=== PATIENT | female | born 1980 | race African-American/Black ===

== ENCOUNTER 2018-05-28 07:52 | Emergency (ER) | payer SELFPAY ==
[~2018-05-28] VITALS: Ht 160 cm; Wt 88.0 kg
[2018-05-28] MEDS ORDERED: IBUPROFEN 600MG TABLET PO ONE (08:30)
[2018-05-28 10:46] VITALS: BP 132/61
== END 2018-05-28 10:48 | disposition home or self-care (01) ==
LOC: ER 10:13
DX: S81.801A Unspecified open wound, right lower leg, initial encounter (principal); R60.0 Localized edema; W25.XXXA Contact with sharp glass, initial encounter; Y93.89 Activity, other specified; Y92.89 Other specified places as the place of occurrence of the external cause; Z72.0 Tobacco use
CPT/HCPCS: 73590; 73610; 73630; 81025; 93971; 99284

== ENCOUNTER → 2018-05-30 | Emergency (ER) | payer SELFPAY ==
[~2018-05-30] VITALS: Ht 160 cm; Wt 113.0 kg
[2018-05-30 18:42] VITALS: BP 169/99
== END | disposition home or self-care (01) ==
LOC: ER 20:34
DX: Z48.00 Encounter for change or removal of nonsurgical wound dressing (principal); I87.2 Venous insufficiency (chronic) (peripheral); R03.0 Elevated blood-pressure reading, without diagnosis of hypertension; I82.509 Chronic embolism and thrombosis of unspecified deep veins of unspecified lower extremity
CPT/HCPCS: 99282

== ENCOUNTER 2019-09-29 21:23 | Emergency (ER) | payer SELFPAY ==
[~2019-09-29] VITALS: Ht 165.1 cm; Wt 69.0 kg
[2019-09-29] MEDS ORDERED: KETOROLAC 60MG/2ML VIAL IM ONE (22:45)
[2019-09-29 23:17] VITALS: BP 131/80
== END 2019-09-29 23:17 | disposition home or self-care (01) ==
LOC: ER 21:23
DX: J06.9 Acute upper respiratory infection, unspecified (principal)
CPT/HCPCS: 96372; 99283; J1885

== ENCOUNTER 2021-02-02 14:51 | Emergency (ER) | payer MEDICAID ==
[~2021-02-02] VITALS: Ht 162.6 cm; Wt 82.0 kg
[2021-02-02] MEDS ORDERED: KETOROLAC 15MG/ML VIAL IM ONE (15:30)
[2021-02-02] MEDS ORDERED: IBUP-2029 MT (16:09)
[2021-02-02 16:28] VITALS: BP 128/70
== END 2021-02-02 14:55 | disposition left against medical advice (07) ==
LOC: ER 14:51
DX: M25.512 Pain in left shoulder (principal); E11.9 Type 2 diabetes mellitus without complications; I10 Essential (primary) hypertension
CPT/HCPCS: 73030; 96372; 99283; J1885

== ENCOUNTER 2023-02-28 12:17 | Emergency (ER) | payer MEDICAID ==
[~2023-02-28] VITALS: Ht 167.6 cm; Wt 104.0 kg
[~2023-02-28 12:17] MED LIST: IBUP-2029 MT
[2023-02-28 12:46] LABS: BASOPHILS % 0.3 % (0.0-2.0); EOSINOPHILS % 1.5 % (0.0-5.0); HEMATOCRIT. 38.6 % (36.0-48.0); HEMOGLOBIN. 12.1 g/dL (12.0-16.0); LYMPHOCYTES % 24.1 % (20.0-50.0); MEAN CORPUSCULAR HEMOGLOBIN 22.5 pg (28.0-32.0); MEAN CORPUSCULAR VOLUME 72.1 fL (81.0-99.0); MEAN PLATELET VOLUME 8.6 fl (7.4-10.4); MONOCYTES % 8.2 % (2.0-8.0); NEUTROPHILS % 65.9 % (40.0-76.0); PLATELET 271 x1000/uL (130-400); RED BLOOD CELL COUNT 5.35 mill/uL (4.2-5.4); RED CELL DISTRIBUTION WIDTH 20.7 % (11.6-14.6)
[2023-02-28 12:52] LABS: CHLORIDE 100 mEq/L (98-107)
[2023-02-28 13:13] LABS: HCG SCREEN NEGATIVE
[2023-02-28 14:49] LABS: CLARITY URINE CLOUDY (CLEAR); COLOR URINE RED (YELLOW); KETONES URINE NEGATIVE (NEGATIVE); LEUKOCYTE ESTERASE URINE TRACE (NEGATIVE); NITRITE URINE NEGATIVE (NEGATIVE); OCCULT BLOOD URINE 3+ (NEGATIVE); PROTEIN URINE 1+ (NEGATIVE); SPECIFIC GRAVITY URINE 1.035 (1.005-1.030)
[2023-02-28] MEDS ORDERED: FERR210T MT (15:07)
[2023-02-28 15:30] VITALS: BP 141/85
== END 2023-02-28 15:43 | disposition home or self-care (01) ==
LOC: ER 12:26
DX: N93.8 Other specified abnormal uterine and vaginal bleeding (principal); E11.9 Type 2 diabetes mellitus without complications; I10 Essential (primary) hypertension
CPT/HCPCS: 36415; 76830; 76856; 80053; 81003; 81025; 84703; 85025; 86850; 86900; 86901; 99284; Z7610

== ENCOUNTER 2024-04-02 09:55 | Emergency (ER) | payer MEDICAID ==
[~2024-04-02] VITALS: Ht 167.6 cm; Wt 82.0 kg
[~2024-04-02 09:55] MED LIST changes: +FERR210T MT
[2024-04-02 09:57] VITALS: O2SAT 100
[2024-04-02 10:44] LABS: BASOPHILS % 0.5 % (0.0-2.0); HEMATOCRIT. 39.7 % (36.0-48.0); HEMOGLOBIN. 13.1 g/dL (12.0-16.0); LYMPHOCYTES % 22.4 % (20.0-50.0); MEAN CORPUSCULAR HEMOGLOBIN 27.7 pg (28.0-32.0); MEAN CORPUSCULAR VOLUME 83.8 fL (81.0-99.0); MEAN PLATELET VOLUME 8.7 fl (7.4-10.4); MONOCYTES % 8.6 % (2.0-8.0); NEUTROPHILS % 67.5 % (40.0-76.0); PLATELET 209 x1000/uL (130-400); RED BLOOD CELL COUNT 4.73 mill/uL (4.2-5.4); RED CELL DISTRIBUTION WIDTH 15.2 % (11.6-14.6); WHITE BLOOD COUNT 10.8 x1000/uL (4.5-11.0)
[2024-04-02] MEDS: SODIUM CHLORIDE 0.9% 1,000 ML IV ONE ×2 (10:54→11:55)
[2024-04-02 11:01] LABS: CHLORIDE 101 mEq/L (98-107); SODIUM 135 mEq/L (136-145)
[2024-04-02 11:02] LABS: CARBON DIOXIDE 23 mEq/L (21-32)
[2024-04-02 11:07] LABS: CREATININE 0.8 mg/dL (0.6-1.0); GLUCOSE 358 mg/dL (70-105); UREA NITROGEN BLOOD 6 mg/dL (9-23)
[2024-04-02 11:24] LABS: TROPONIN I HIGH SENSITIVITY < 4 ng/L (3.0-34)
[2024-04-02 14:03] LABS: TROPONIN I HIGH SENSITIVITY < 4 ng/L (3.0-34)
[2024-04-02] MEDS ORDERED: METF-414 MT (14:55)
[2024-04-02] MEDS ORDERED: TOPUD MT (14:55)
[2024-04-02] MEDS ORDERED: PANT40SU MT (14:55)
[2024-04-02 15:21] VITALS: BP 132/54; PULSE 72; RESP 16; TEMP 98
== END 2024-04-02 15:24 | disposition home or self-care (01) ==
LOC: ER 10:39
DX: R07.89 Other chest pain (principal); I10 Essential (primary) hypertension; E11.9 Type 2 diabetes mellitus without complications; Z98.890 Other specified postprocedural states
CPT/HCPCS: 99285; 96360; 71045; 80048; 82010; 82962; 83880; 85025; 84484; 36415; 93005; J7030

== ENCOUNTER 2024-08-13 09:17 | Emergency (ER) | payer MEDICAID ==
[~2024-08-13] VITALS: Ht 160 cm; Wt 105.0 kg
[~2024-08-13 09:17] MED LIST changes: +METF-414 MT; +PANT40SU MT; +TOPUD MT
[2024-08-13 09:41] VITALS: O2SAT 99
[2024-08-13 10:16] LABS: BASOPHILS % 0.4 % (0.0-2.0); EOSINOPHILS % 0.7 % (0.0-5.0); HEMATOCRIT. 38.9 % (36.0-48.0); HEMOGLOBIN. 12.4 g/dL (12.0-16.0); LYMPHOCYTES % 26.5 % (20.0-50.0); MEAN CORPUSCULAR HEMOGLOBIN 26.5 pg (28.0-32.0); MEAN CORPUSCULAR HGB CONC 31.9 g/dL (31.0-37.0); MEAN CORPUSCULAR VOLUME 83.2 fL (81.0-99.0); MEAN PLATELET VOLUME 9.1 fl (7.4-10.4); MONOCYTES % 7.1 % (2.0-8.0); NEUTROPHILS % 65.3 % (40.0-76.0); PLATELET 231 x1000/uL (130-400); RED BLOOD CELL COUNT 4.68 mill/uL (4.2-5.4); RED CELL DISTRIBUTION WIDTH 14.1 % (11.6-14.6); WHITE BLOOD COUNT 8.9 x1000/uL (4.5-11.0)
[2024-08-13 10:29] LABS: CHLORIDE 104 mEq/L (98-107); POTASSIUM 3.8 mEq/L (3.5-5.1); SODIUM 136 mEq/L (136-145)
[2024-08-13 10:30] LABS: CALCIUM 8.9 mg/dL (8.7-10.4); CARBON DIOXIDE 28 mEq/L (21-32)
[2024-08-13] MEDS ORDERED: ONDANSETRON 4MG ODT PO ONE (10:30)
[2024-08-13 10:35] LABS: CREATININE 0.9 mg/dL (0.6-1.0); GLUCOSE 243 mg/dL (70-105)
[2024-08-13 10:36] LABS: UREA NITROGEN BLOOD 11 mg/dL (9-23)
[2024-08-13 10:37] LABS: ALANINE AMINOTRANSFERASE 8 IU/L (10-49); ASPARTATE AMINOTRANSFERASE 10 IU/L (<34); BILIRUBIN DIRECT 0.1 mg/dL (<=3.0)
[2024-08-13 10:38] LABS: BILIRUBIN TOTAL 0.4 mg/dL (0.1-1.0); PROTEIN TOTAL 7.3 g/dL (6.0-8.3)
[2024-08-13 10:43] LABS: TROPONIN I HIGH SENSITIVITY < 4 ng/L (3.0-34)
[2024-08-13 11:09] LABS: CLARITY URINE CLOUDY (CLEAR); COLOR URINE YELLOW (YELLOW); GLUCOSE URINE 3+ (NEGATIVE); KETONES URINE NEGATIVE (NEGATIVE); LEUKOCYTE ESTERASE URINE NEGATIVE (NEGATIVE); NITRITE URINE NEGATIVE (NEGATIVE); OCCULT BLOOD URINE NEGATIVE (NEGATIVE); PH URINE 5.5 (4.5-8.0); PROTEIN URINE NEGATIVE (NEGATIVE); SPECIFIC GRAVITY URINE 1.031 (1.005-1.030)
[2024-08-13 11:25] LABS: BACTERIA URINE 3+; RBC URINE 0-2 /hpf (0-2); SQUAMOUS EPITHELIAL CELL URINE 3+ /lpf (RARE/1+); WBC URINE 0-2 /hpf (0-2); YEAST URINE NONE SEEN
[2024-08-13] MEDS ORDERED: ONDA-239 PO (13:32)
[2024-08-13] MEDS: ONDANSETRON 4MG ODT PO NR (13:34)
[2024-08-13 13:36] VITALS: BP 129/78; PULSE 76; RESP 18; TEMP 37.05852; O2SAT 100
== END 2024-08-13 13:37 | disposition home or self-care (01) ==
LOC: ER 09:29
DX: K52.9 Noninfective gastroenteritis and colitis, unspecified (principal); E11.9 Type 2 diabetes mellitus without complications; I10 Essential (primary) hypertension; Z91.040 Latex allergy status; Z98.890 Other specified postprocedural states
CPT/HCPCS: 99284; 80076; 80048; 81003; 81025; 82010; 82962; 83690; 85025; 84484; 36415; 93005; Q0162

== ENCOUNTER 2025-03-24 06:33 | Emergency (ER) | payer MEDICAID ==
[~2025-03-24] VITALS: Ht 162.6 cm; Wt 103.0 kg
[~2025-03-24 06:33] MED LIST changes: +ONDA-239 PO
[2025-03-24 06:38] VITALS: O2SAT 98
[2025-03-24] MEDS: OXYCODONE HCL/ACETAMINOPHEN 5/325MG TABLET PO ONE (07:24)
[2025-03-24] MEDS ORDERED: IBUP-2028 PO (07:56)
[2025-03-24] MEDS ORDERED: T3 PO (07:56)
[2025-03-24 08:20] VITALS: BP 148/81; PULSE 85; RESP 18; TEMP 37; O2SAT 97
== END 2025-03-24 08:33 | disposition home or self-care (01) ==
LOC: ER 06:33
DX: M25.512 Pain in left shoulder (principal); E11.9 Type 2 diabetes mellitus without complications; Z91.040 Latex allergy status; Z79.899 Other long term (current) drug therapy; Z98.890 Other specified postprocedural states
CPT/HCPCS: 73060; 99283; A4565